=== PATIENT | male | born 1970 | race Caucasian/White ===

== ENCOUNTER 2017-03-09 11:23 | Emergency (ER) | payer MEDICAID ==
[~2017-03-09] VITALS: Ht 180.3 cm; Wt 101.3 kg
[2017-03-09 11:31] VITALS: Ht 180.3 cm; Wt 101.3 kg
--- NOTE | 2017-03-09 12:22 | ERD ---
ER Documentation Chief Complaint Chief Complaint ap x 1 year today feeling worse HPI This 46 old male presents for his umbilical hernia is noticed a year ago. Is still able to reduce it and it does not cause him significant pain but he is uninsured and wonders what the options are for getting it taken care of. He has a friend who underwent mesh repair with good results. He has been avoiding strenuous physical activity because he does not want to exacerbate the hernia. He has no abdominal pain currently. ROS All systems reviewed and are negative except as per history of present illness. PMhx/Soc Medical and Surgical Hx: pt denies Medical Hx, pt denies Surgical Hx Hx Alcohol Use: No Hx Substance Use: No Hx Tobacco Use: No Physical Exam Vitals Vital Signs Date Time Temp Pulse Resp B/P Pulse Ox O2 Delivery O2 Flow Rate FiO2 03/09/17 11:31 98.0 71 18 138/86 99 Physical Exam Const: [] No distress Eyes: Normal Conjunctiva ENT: Normal External Ears, Nose and Mouth. Abd: Soft, 2 x 2 centimeter umbilical hernia that is normal skin tone, easily reduced without pain, non tender, non distended. Normal bowel sounds Skin: No petechiae or rashes Ext: No cyanosis, or edema Neur: Awake and alert oriented 3, no focal deficits Psych: Normal Mood and Affect Procedures/MDM Reducible, painless umbilical hernia. Patient is in otherwise good physical condition with an otherwise normal physical exam. Is fortunate the patient came in early before his hernia had caused him any significant pain or distress. Spoke with registration and who was given him [facility] instructions. Instructed him to call the number listed is eligible and obtain a general surgeon referral. Currently no signs of incarceration or strangulation or need for acute admission. Patient does not want pain medication either. Please otherwise healthy enough to undergo surgery. Discharging him with typed instructions on how to proceed told him to return to the emergency room immediately if he cannot push the hernia never caused him any significant pain. Departure Diagnosis: Primary Impression: Umbilical hernia Condition: Stable Patient Instructions: Laparoscopic Hernia Repair, Having Hernia Surgery: Patch Repair, Hernia (Inguinal, Ventral, Umbilical) Additional Instructions: As soon as you are given an insurance card, or equivalent approval paperwork, call the number on the card for a GENERAL SURGEON referral for repair of your umbilical hernia. JESUS RODRÍGUEZ DO Mar 09, 2017 12:22
[2017-03-09 12:26] VITALS: BP 132/85; PULSE 61; RESP 18; TEMP 97.8
== END 2017-03-09 12:27 | disposition home or self-care (01) ==
LOC: FTE 11:23
DX: K42.9 Umbilical hernia without obstruction or gangrene (principal)
CPT/HCPCS: 99282